=== PATIENT | male | born 1945 | race Caucasian/White ===

== ENCOUNTER 2018-10-09 15:47 | Outpatient (CLI) | payer MEDICARE, OTHER ==
--- NOTE | 2018-10-09 18:17 | RAD ---
LEFT HIP TWO VIEWS: Indication: Left hip pain. FINDINGS: There is mild to moderate osteoarthritis. There is no fracture or dislocation. Vascular calcification is seen. There is degenerative change at the lumbosacral joints and symphysis pubis. 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 POS: [facility]
--- NOTE | 2018-10-09 18:19 | RAD ---
LUMBAR SPINE RADIOGRAPHIC SERIES 2-3 VIEWS: Indication: Pain. FINDINGS: There is multilevel endplate degeneration with endplate sclerosis and marginal osteophyte formation. Multilevel facet osteoarthrosis is present. There is no evidence of an acute compression fracture or significant subluxation. Incidental note of atherosclerosis. There is slight levo curvature of the adonis mbar spine. IMPRESSION: Moderate multilevel degenerative changes of the lumbar spine without definite acute osseous abnormali ty visualized. POS: [facility]
== END 2018-10-09 15:48 | disposition home or self-care (01) ==
LOC: BICRAD 15:47
PROVIDERS: ATTEND Internal Medicine
DX: M25.559 Pain in unspecified hip (principal); M54.5 Low back pain; M47.816 Spondylosis without myelopathy or radiculopathy, lumbar region; M16.12 Unilateral primary osteoarthritis, left hip
CPT/HCPCS: 72100

== ENCOUNTER 2018-10-27 09:15 | Outpatient (CLI) | payer MEDICARE, OTHER ==
--- NOTE | 2018-10-27 11:50 | MRI ---
MRI LEFT HIP WITHOUT CONTRAST: HISTORY: Hip pain, M25.559. COMPARISON: Hip radiograph from 10/09/2018. FINDINGS: BONES: On the T1-weight imaging sequence, there are no abnormal areas of marrow signal replacement. The red marrow is mildly mottled. This is symmetric and bilateral. Mild degenerative changes of the pubic symphysis. There are small acetabular osteophytes bilaterally . Small bilateral femoral head ring osteophytes. There is advanced narrowing of the L5-S1 disk space. There appears to be possibly bilateral pars int erarticularis defects at L5 without significant listhesis. MUSCLES: Muscle bulk is normal and symmetric bilaterally. In the left gluteus denise muscle, only seen on the coronal T2 sequence, is a focal area of increased T2 signal, suggesting a muscle strain. This area is T1 dark and may reflect a focal area of heterotopic ossification versus muscle strain. There is a mild fat-containing left-sided indirect inguinal hernia. LABRUM: There is degenerative tearing throughout the anterior and superior labrum. CARTILAGE: There is mild cartilage delamination along the superior articular surface of the acetabul um, with extensive cartilage fraying of the anterior femoral head. Mild subcortical reactive marrow edema of the acetabulum on the left. TENDONS: The iliopsoas tendon is intact. The rectus femoris tendon is intact. There is mild inters titial delamination of the common hamstring tendon and semimembranosus. There is mild tendinosis and low-grade partial tearing of the gluteus medius tendon. Low-grade greater trochanteric bursitis. IMPRESSION: 1. Mild degenerative disease of both hips with cartilage loss and fraying, acetabular osteophyte for mation, and subcortical reactive marrow changes. 2. Low-grade increased fluid signal within the left gluteus denise muscle, on coronal image #20, wh ich appears T1 dark. This may reflect a low-grade muscle strain versus some heterotopic ossification from prior injury. 3. Degenerative type tearing throughout the anterior and superior labrum. 4. Low-grade tendinosis with partial tearing of the gluteus medius tendon with low-grade greater tro chanteric bursitis. 5. Small left-sided indirect fat-containing inguinal hernia. 6. Bilateral likely pars interarticularis defects at L5 without significant listhesis. POS: [facility]
--- NOTE | 2018-10-27 12:12 | MRI ---
MRI LUMBAR SPINE NONCONTRAST: History: Low back pain with left leg radiculopathy. FINDINGS: Conus medullaris has a normal appearance. Vertebral body height and alignment are maintained. Bone ma rrow signal is within normal limits. T12-L1, L1-2, L2-3: Mild osteophytosis. Central canal and neural foramina are patent. L3-4: Mild posterior disc bulge. Circumferential degenerative changes with mild stenosis of the centr al canal. Moderate right and severe left foraminal stenosis. L4-5: Mild disc bulge. Circumferential degenerative changes with mild stenosis of the central canal. Moderate bilateral foraminal stenoses. L5-S1: Minimal disc bulge. Thecal sac is patent. Degenerative changes with moderate right and severe left foraminal stenosis. IMPRESSION: Degenerative changes throughout the lumbar spine. Stenoses are most severe at the left neural foramin a at the L3-4 and L5-S1 levels. Clinical correlation regarding the left L3 and L5 dermatomes is requi red. POS: [facility]
== END 2018-10-27 09:16 | disposition home or self-care (01) ==
LOC: TBSIIMAG 09:15
PROVIDERS: ATTEND Internal Medicine
DX: M54.5 Low back pain (principal); M25.552 Pain in left hip; M47.816 Spondylosis without myelopathy or radiculopathy, lumbar region; M48.061 Spinal stenosis, lumbar region without neurogenic claudication; M48.07 Spinal stenosis, lumbosacral region; M43.8X6 Other specified deforming dorsopathies, lumbar region; M16.0 Bilateral primary osteoarthritis of hip; M25.752 Osteophyte, left hip; K40.90 Unilateral inguinal hernia, without obstruction or gangrene, not specified as recurrent; S73.102A Unspecified sprain of left hip, initial encounter
CPT/HCPCS: 72148

== ENCOUNTER 2019-01-23 19:30 | Outpatient (CLI) | payer MEDICARE, OTHER | END 2019-01-23 19:31 | disposition home or self-care (01) | LOC: SLEEPLAB 19:30 | PROVIDERS: ATTEND Internal Medicine Critical Care Medicine | DX: G47.33 Obstructive sleep apnea (adult) (pediatric) (principal); E66.9 Obesity, unspecified; I10 Essential (primary) hypertension | CPT/HCPCS: 95811 ==

== ENCOUNTER 2019-05-22 09:56 | Outpatient (CLI) | payer MEDICARE, OTHER ==
--- NOTE | 2019-05-22 12:09 | CT ---
CT Lumbar Spine WO Con History: Lumbar radiculopathy Comparison: MRI examination September 2018 Findings: The aortic contour is nonaneurysmal. Moderate atherosclerotic plaque. No retroperitoneal pe riaortic adenopathy. Spleen is incompletely evaluated although may be enlarged. No acute fracture. Transverse processes are intact. No lumbosacral transitional vertebra. Moderate de generative disease of the SI joints. Levels are as follows: L1/L2: Low-grade degenerative disc space height loss. Mild facet arthropathy. No significant neural f oraminal or spinal canal narrowing. L2/L3: Low-grade bilateral subfrontal posterior disc osteophyte complexes. Low-grade posterior degene rative disc space height loss. Mild bilateral neural foraminal narrowing. L3/L4: Mild degenerative posterior disc space height loss. Mild vacuum disc phenomenon with intravert ebral herniation of the inferior endplate of L3. The spinal canal measures approximately 8 mm. Moderate ligamentum flavum hypertrophy. Moderate hypertrophic facet changes. [address] cumferential disc osteophyte complex. Moderate right and severe left neural foraminal narrowing. L4/L5: Mild degenerative disc space height loss. Bilateral subfrontal posterior disc osteophyte compl exes. Moderate facet arthropathy. Moderate bilateral neural foraminal narrowing. L5-S1: Advanced posterior degenerative disc space height loss with a broad-based posterior disc osteo phyte complex. Moderate facet arthropathy. Moderate right and severe left neural foraminal narrowing. Impression: Multilevel spondylosis with neural foraminal and spinal canal narrowing.
== END 2019-05-22 09:57 | disposition home or self-care (01) ==
LOC: SCSCT 09:56
PROVIDERS: ATTEND Neurological Surgery
DX: M47.26 Other spondylosis with radiculopathy, lumbar region (principal); M48.061 Spinal stenosis, lumbar region without neurogenic claudication
CPT/HCPCS: 72131

== ENCOUNTER 2019-06-27 06:51 | Day surgery (SDC) | payer MEDICARE, OTHER ==
[2019-06-26 12:31] VITALS: BMI 41.1
--- NOTE | 2019-06-26 23:26 | HP ---
HISTORY OF PRESENT ILLNESS: Mr. Lynch is a 73-year-old man here today for evaluation of mostly axial lower back pain with extension into the bilateral upper buttock. Onset was in September 2018 after cleaning his garage, he states he went to bed that evening and when he woke up, he had severe posterolateral left hip and thigh pain partial L5 radiculopathy. This has since subsided and then largely he is on his back. He has been receiving epidural steroid injections since October with limited fashion. He has rather real foraminal stenosis bilaterally at L5, moderate to severe on the left and mild to moderate on the right. He is adamant about doing something to correct this and describes frustration with the injection process telling it has delayed him having treatment. PAST MEDICAL HISTORY: Significant for diabetes, coronary arterial disease, hypertension, seasonal allergies, neuropathy. CURRENT MEDICATIONS: 1. Rosuvastatin. 2. Ramipril. 3. Thiamine. 4. Ubiquinone. 5. Alpha lipoic acid. 6. Aspirin. 7. Carvedilol. 8. Cholecalciferol. 9. Fluticasone. 10. Gabapentin. 11. Insulin. 12. Isosorbide mononitrate. ALLERGIES: NONE LISTED. PAST SURGICAL HISTORY: Cardiac bypass. PHYSICAL EXAMINATION: The patient is alert and oriented x3. Gait is severely antalgic. Lower extremity motor exam is normal. ASSESSMENT: Dr. Vieira met with the patient, reviewed imaging, advocated for bilateral L5 facetectomies and foraminotomies. He explained to the patient the risks, benefits, and alternatives to the procedure. The patient expressed understanding and elected to move forward with surgery as discussed. I do believe the patient is mentally competent and capable of making medical decisions for himself. We will move forward with surgery as planned. Job ID: [id number]
[2019-06-27 07:57] LABS: Hemoglobin 13.6 g/dL (14.0-18.0); Mean Corpuscular HGB CONC 34.8 g/dL (32.0-36.0); Mean Corpuscular Hemoglobin 32.1 pg (27.0-31.0); Mean Platelet Volume 6.2 fL (7.4-10.4); Platelet Count 201 thou/uL (130-400); RBC Distribution Width 12.6 % (11.5-14.5); Red Blood Cell (RBC) Count 4.24 mill/uL (4.70-6.10); White Blood Cell (WBC) Count 15.6 thou/uL (4.8-10.8)
[2019-06-27 08:12] LABS: Anion Gap 13 mmol/L (10-20); BUN (Urea Nitrogen) 19 mg/dL (8.4-25.7); Calc. Creatinine Clearance 151 mL/min (70-130); Calcium 9.6 mg/dL (7.8-10.44); Carbon Dioxide 27 mmol/L (23-31); Chloride 102 mmol/L (98-107); Estimated GFR-MDRD Greater than 90; Glucose 271 mg/dL (83-110); Potassium 4.3 mmol/L (3.5-5.1); Sodium 138 mmol/L (136-145)
[2019-06-27] MEDS ORDERED: Insulin Regular 300 UNITS/3 ML VIAL ONE (08:19)
[2019-06-27 08:27] LABS: Eosinophils 4 % (0-10); Lymphocytes 72 % (21-51); MDiff Complete? YES; Monocytes 9 % (0-10); Neutrophil 12 % (42-75); RBC Morphology Normal; Reactive Lymphocytes 3 % (0-10)
[2019-06-27] MEDS ORDERED: Ropivacaine 0.2% HCl/PF 0 ML ONE (09:59)
[2019-06-27] MEDS ORDERED: Bupivacaine HCl 0.5%/Epinephrine 1:200,000/PF 30 ml Vial ONE (09:59)
[2019-06-27] MEDS ORDERED: Thrombin 5000 UNITS/5 ML VIAL ONE (09:59)
[2019-06-27] MEDS ORDERED: Fentanyl 100 MCG/2 ML VIAL ONE ×2 (10:00→12:32)
[2019-06-27] MEDS ORDERED: Tamsulosin HCl 0.4 MG CAP ONE (11:41)
--- NOTE | 2019-06-27 13:59 | OP ---
DATE OF PROCEDURE: 06/27/2019 MANUFACTURING SALES REPRESENTATIVE: Srikanth Heredia PA-C INDICATION: Pain. DIAGNOSES: Foraminal stenosis and L5 radiculopathy, left greater than right. ANESTHESIA: General. PROCEDURES PERFORMED: Bilateral L5 medial facetectomies and bilateral L5 foraminotomies. ANESTHESIA: General. DESCRIPTION OF PROCEDURE: The patient was brought into the operating room and placed under general anesthesia. He was flipped from the supine to prone position on the operating room table. A linear incision was planned over L5. After prepping and draping and after an appropriate preoperative pause, the incision was created. The soft tissues were swept away from midline. Self-retaining retractors were placed in the wound for optimal exposure. After confirming appropriate level with C-arm fluoroscopy, high-speed cutting drill bit, as well as 2, 3, and 4 mm Kerrisons were used to perform bilateral partial hemilaminectomies of the L5-S1 segment. The L5 and S1 pedicles were identified and foraminotomies were performed over the exiting L5 nerve roots bilaterally. The wound was then irrigated. Hemostasis was maintained throughout. The wound was then closed in anatomic layers and a pressure dressing was applied. There were no known procedural complications. Job ID: [id number]
[2019-06-27] MEDS ORDERED: Glycopyrrolate 0.2 MG/ML 5 ML SYRINGE ONE (16:22)
[2019-06-27] MEDS ORDERED: PROPOFOL 200 MG/20 ML VIAL ONE (16:22)
[2019-06-27] MEDS ORDERED: Ondansetron PF 4 MG/2 ML Vial ONE (16:22)
[2019-06-27] MEDS ORDERED: Rocuronium Bromide 10 MG/ML (10ML VIAL) ONE (16:22)
[2019-06-27] MEDS ORDERED: Lidocaine 1% PF 5 ML VIAL ONE (16:22)
== END 2019-06-27 14:30 | disposition home or self-care (01) ==
LOC: SDC 06:51
PROVIDERS: ATTEND Neurological Surgery
PROC: 00NY0ZZ Release Lumbar Spinal Cord, Open Approach (ICD-10-PCS; principal; 2019-06-27)
DX: M48.061 Spinal stenosis, lumbar region without neurogenic claudication (principal); M54.16 Radiculopathy, lumbar region; E78.00 Pure hypercholesterolemia, unspecified; I10 Essential (primary) hypertension; E66.01 Morbid (severe) obesity due to excess calories; I35.0 Nonrheumatic aortic (valve) stenosis; E78.2 Mixed hyperlipidemia; Z68.41 Body mass index [BMI] 40.0-44.9, adult; Z79.4 Long term (current) use of insulin; Z79.899 Other long term (current) drug therapy; Z88.8 Allergy status to other drugs, medicaments and biological substances; Z95.2 Presence of prosthetic heart valve
CPT/HCPCS: 36415; 36416; 76000; 80048; 85025; 85060; J0670; J0690; J1815; J2001; J2405; J2704; J2795; J3010

== ENCOUNTER 2019-12-26 10:34 | Emergency (ER) | payer MEDICARE, OTHER ==
[2019-12-26 11:05] LABS: Hemoglobin 14.1 g/dL (14.0-18.0); Mean Corpuscular HGB CONC 33.5 g/dL (32.0-36.0); Mean Corpuscular Hemoglobin 32.7 pg (27.0-31.0); Mean Corpuscular Volume 97.6 fL (78.0-98.0); Mean Platelet Volume 6.7 fL (7.4-10.4); Platelet Count 214 thou/uL (130-400); Red Blood Cell (RBC) Count 4.31 mill/uL (4.70-6.10); White Blood Cell (WBC) Count 20.1 thou/uL (4.8-10.8)
[2019-12-26 11:26] LABS: ALT (SGPT) 34 U/L (8-55); AST (SGOT) 24 U/L (5-34); Albumin 3.9 g/dL (3.4-4.8); Alkaline Phosphatase 58 U/L (40-110); Anion Gap 8 mmol/L (10-20); BUN (Urea Nitrogen) 12 mg/dL (8.4-25.7); Bilirubin, Total 1.1 mg/dL (0.2-1.2); Calc. Creatinine Clearance 0 mL/min (70-130); Calcium 8.9 mg/dL (7.8-10.44); Carbon Dioxide 29 mmol/L (23-31); Chloride 103 mmol/L (98-107); Estimated GFR-MDRD Greater than 90; Glucose 194 mg/dL (83-110); Potassium 4.4 mmol/L (3.5-5.1); Protein, Total 5.9 g/dL (5.8-8.1); Sodium 136 mmol/L (136-145)
[2019-12-26 11:42] LABS: Band 2 % (5-11); Eosinophils 3 % (0-10); Lymphocytes 75 % (21-51); MDiff Complete? YES; Monocytes 4 % (0-10); Neutrophil 10 % (42-75); Platelet Morphology Comment Appears Adequate; Reactive Lymphocytes 6 % (0-10); Reflex for Review?? NO
[2019-12-26 12:03] LABS: CKMB 15.3 ng/mL (0-6.6)
--- NOTE | 2019-12-26 12:04 | RAD ---
RADIOGRAPH CHEST 1 VIEW: Date: 12/26/2019 Time: 1242 HOURS HISTORY: 74-year-old male with chest pain and dyspnea. COMPARISON: 07/06/2016. FINDINGS: New finding of blunting of left lateral costophrenic angle. New finding of small focus of subsegmenta l atelectasis or scar at the right lateral base. Diffusely prominent interstitial markings. No cardio megaly. Sternotomy wires. No consolidation or pulmonary edema visualized in the upper and mid lung zo peng. No pneumothorax. IMPRESSION: 1. Left pleural effusion versus atelectasis or scar at left lateral lung base. 2. Evidence of previous open heart surgery. JN [] POS: [facility]
== END 2019-12-26 13:36 | disposition left against medical advice (07) ==
LOC: ERS 10:34
DX: I48.91 Unspecified atrial fibrillation (principal); J90 Pleural effusion, not elsewhere classified; R79.89 Other specified abnormal findings of blood chemistry; I25.10 Atherosclerotic heart disease of native coronary artery without angina pectoris; I25.2 Old myocardial infarction; I10 Essential (primary) hypertension; E11.9 Type 2 diabetes mellitus without complications; E78.5 Hyperlipidemia, unspecified; E78.00 Pure hypercholesterolemia, unspecified
CPT/HCPCS: 36415; 71045; 80053; 82553; 84484; 85025; 93005

== ENCOUNTER 2020-08-01 12:18 | Outpatient (CLI) | payer MEDICARE, OTHER ==
--- NOTE | 2020-08-01 14:11 | MRI ---
MRI LUMBAR SPINE NONCONTRAST: DATE: 08/01/20 HISTORY: 74-year-old male with low back pain, M54.5. COMPARISON: 10/27/18 FINDINGS: Five lumbar type vertebrae. Vertebral body heights are maintained. No bone marrow signal abnormality. Conus medullaris terminates at L2. Heterogeneous atrophy of bilateral posterior paraspinal musculatu re, mostly in the upper levels. No major spondylolisthesis or major scoliosis. No high grade disc spa ce narrowing at any level. T12-L1: Essentially normal. L1-2: Essentially normal. L2-3: Mild disc bulge. Mild central spinal canal stenosis. Mild bilateral degenerative facet changes. Mild bilateral neural foraminal stenosis. L3-4: Mild to moderate bilateral facet DJD including bilateral facet joint effusions. Diffuse disc bu lge. Retrolisthesis of L3 on L4. Moderate bilateral neural foraminal stenosis. Moderate central spina l canal stenosis. L4-5: Minimal retrolisthesis of L4 on L5. Mild disc bulge. Moderate bilateral neural foraminal stenos is. Mild to moderate central spinal canal stenosis. L5-S1: Mild disc bulge. No central spinal canal stenosis. Moderate bilateral neural foraminal stenosi s, left worse than right. The previously demonstrated prominent anterior epidural fat pad has involut ed. Otherwise, there has been no other interval change overall. IMPRESSION: 1. Low grade lumbar spondylosis, consisting of several levels of low grade degenerative disc dis ease, and mild to moderate facet osteoarthrosis. 2. Bilateral moderate neural foraminal stenosis at L3-4, L4-5, and L5-S1. This is greatest on th e left at L5-S1. 3. Moderate central spinal canal stenosis at L3-4. 4. No severe central spinal canal stenosis at any level. 5. No major interval change. 6. Atrophy of posterior paraspinal musculature. PAUL Rubalcava POS: [facility]
== END 2020-08-01 12:19 | disposition home or self-care (01) ==
LOC: TBSIIMAG 12:18
PROVIDERS: ATTEND Internal Medicine
DX: M54.5 Low back pain (principal); M47.816 Spondylosis without myelopathy or radiculopathy, lumbar region; M48.061 Spinal stenosis, lumbar region without neurogenic claudication; M48.07 Spinal stenosis, lumbosacral region; G12.9 Spinal muscular atrophy, unspecified
CPT/HCPCS: 72148

== ENCOUNTER 2024-11-15 15:21 | Emergency (ER) | payer MEDICARE, OTHER ==
[2024-11-15 16:12] LABS: ALT (SGPT) 21 U/L (8-55); AST (SGOT) 23 U/L (5-34); Albumin 3.7 g/dL (3.4-4.8); Alkaline Phosphatase 75 U/L (40-110); Anion Gap 13 mmol/L (10-20); BUN (Urea Nitrogen) 14 mg/dL (8.4-25.7); Calc. Creatinine Clearance 0 mL/min (70-130); Calcium 9.2 mg/dL (7.8-10.44); Carbon Dioxide 24 mmol/L (23-31); Chloride 102 mmol/L (98-107); Estimated GFR 94; Globulin 2.7 g/dL (2.4-3.5); Glucose 151 mg/dL (83-110); Protein, Total 6.4 g/dL (5.8-8.1); Sodium 135 mmol/L (136-145)
[2024-11-15 16:15] LABS: INR-International Normal Ratio 1.3; PTT 34.4 sec (22.9-36.1); Prothrombin Time 15.8 sec (12.0-14.7)
[2024-11-15] MEDS ORDERED: Acetaminophen 500 MG TAB ONE (16:17)
[2024-11-15 16:28] LABS: Band 1 % (5-11); Burr Cells SLIGHT = 2-5 cells HPF (0-1); Eosinophils 9 % (0-10); Lymphocytes 61 % (21-51); Monocytes 5 % (0-10); Neutrophil 17 % (42-75); Ovalocytes SLIGHT = 2-5 cells HPF (0-1); Platelet Adequacy Comment Platelets Normal; Polychromasia SLIGHT = 2-3 cells HPF (0-2); Reactive Lymphocytes 6 % (0-10); Smudge Cells 49.5 %
[2024-11-15 16:30] LABS: Hematocrit 37.3 % (42.0-52.0); Hemoglobin 13.1 g/dL (14.0-18.0); Mean Corpuscular HGB CONC 35.1 g/dL (32.0-36.0); Mean Corpuscular Hemoglobin 31.1 pg (27.0-31.0); Mean Corpuscular Volume 88.6 fL (78.0-98.0); Mean Platelet Volume 8.6 fL (7.4-10.4); Platelet Count 247 10x3/uL (130-400); RBC Distribution Width 13.9 % (11.5-14.5); Red Blood Cell (RBC) Count 4.21 mill/uL (4.70-6.10)
[2024-11-15 16:57] LABS: #Basophils 0.09 10x3/uL (0.0-0.2); %Basophils 0.4 % (0.0-1.0); %Eosinophils 6.2 % (0.0-10.0); %Monocytes 4.8 % (0.0-10.0); %Neutrophils 14.4 % (42.0-75.0)
[2024-11-15] MEDS ORDERED: Ondansetron PF 4 MG/2 ML Vial ONE (16:57)
[2024-11-15] MEDS ORDERED: Morphine 4 MG/ML VIAL ONE (16:57)
== END 2024-11-15 18:25 | disposition home or self-care (01) ==
LOC: ERS 15:21
DX: S01.112A Laceration without foreign body of left eyelid and periocular area, initial encounter (principal); S50.312A Abrasion of left elbow, initial encounter; M54.50 Low back pain, unspecified; I10 Essential (primary) hypertension; E11.9 Type 2 diabetes mellitus without complications; I25.10 Atherosclerotic heart disease of native coronary artery without angina pectoris; I25.2 Old myocardial infarction; I48.91 Unspecified atrial fibrillation; E78.5 Hyperlipidemia, unspecified; R54 Age-related physical debility; Z79.01 Long term (current) use of anticoagulants; Z79.84 Long term (current) use of oral hypoglycemic drugs; Z79.899 Other long term (current) drug therapy; W08.XXXA Fall from other furniture, initial encounter; Y93.89 Activity, other specified
CPT/HCPCS: 12013; 70450; 72125; 73080; 73564; 80053; 85025; 85610; 85730; 96374; 96375; 99284; J2270; J2405; 36416

== ENCOUNTER 2025-06-07 09:58 | Outpatient (CLI) | payer MEDICARE, OTHER ==
[2025-06-07 11:19] LABS: Hematocrit 37.6 % (42.0-52.0); Hemoglobin 12.6 g/dL (14.0-18.0); Mean Corpuscular Hemoglobin 30.8 pg (27.0-31.0); Mean Corpuscular Volume 91.9 fL (78.0-98.0); Platelet Count 147 10x3/uL (130-400); Red Blood Cell (RBC) Count 4.09 mill/uL (4.70-6.10); White Blood Cell (WBC) Count 12.52 10x3/uL (4.8-10.8)
[2025-06-07 11:26] LABS: INR-International Normal Ratio 1.2; PTT 26.9 sec (22.9-36.1); Prothrombin Time 15.0 sec (12.0-14.7)
[2025-06-07 11:30] LABS: Anion Gap 11 mmol/L (10-20); BUN (Urea Nitrogen) 16 mg/dL (8.4-25.7); Calc. Creatinine Clearance 0 mL/min (70-130); Calcium 9.2 mg/dL (7.8-10.44); Carbon Dioxide 26 mmol/L (23-31); Chloride 105 mmol/L (98-107); Glucose 122 mg/dL (83-110); Potassium 4.4 mmol/L (3.5-5.1); Sodium 138 mmol/L (136-145)
[2025-06-07 11:55] LABS: Burr Cells SLIGHT = 2-5 cells HPF (0-1); Plasma Cells 2 % (0-0); Platelet Adequacy Comment Platelets Normal; Polychromasia SLIGHT = 2-3 cells HPF (0-2); Smudge Cells 19.8 %
== END 2025-06-07 09:59 | disposition home or self-care (01) ==
LOC: LABBT 09:58
PROVIDERS: ATTEND Internal Medicine Cardiovascular Disease
DX: Z01.812 Encounter for preprocedural laboratory examination (principal); I48.19 Other persistent atrial fibrillation
CPT/HCPCS: 80048; 85025; 85610; 85730

== ENCOUNTER 2025-06-12 05:41 | Day surgery (SDC) | payer MEDICARE, OTHER ==
[2025-06-07 10:23] VITALS: BMI 33.7
[2025-06-12] MEDS ORDERED: PROPOFOL 200 MG/20 ML VIAL ONE (08:13)
== END 2025-06-12 09:29 | disposition home or self-care (01) ==
LOC: SDC 05:41
PROVIDERS: ATTEND Internal Medicine Cardiovascular Disease
PROC: B24BZZ4 Ultrasonography of Heart with Aorta, Transesophageal (ICD-10-PCS; principal; 2025-06-12)
DX: I48.19 Other persistent atrial fibrillation (principal); I50.20 Unspecified systolic (congestive) heart failure; I35.0 Nonrheumatic aortic (valve) stenosis; Z95.818 Presence of other cardiac implants and grafts; Z96.1 Presence of intraocular lens; Z90.49 Acquired absence of other specified parts of digestive tract; Z98.890 Other specified postprocedural states; Z88.8 Allergy status to other drugs, medicaments and biological substances
CPT/HCPCS: 82962; 93312; J2704; 36416